=== PATIENT | male | born 1960 | race African-American/Black ===

== ENCOUNTER 2016-07-18 06:01 | Emergency (ER) | payer OTHER ==
[~2016-07-18] VITALS: Ht 172.7 cm; Wt 115.0 kg
[~2016-07-18 06:01] MED LIST: HYDR25TA5 PO; MOBI15TA PO; PRIN20TA2 PO
[2016-07-18 06:09] VITALS: BP 144/97; PULSE 74; RESP 16; TEMP 98.1; O2SAT 96
[2016-07-18] MEDS ORDERED: RESP: ALBUTEROL 2.5 MG/IPRATROPIUM 0.5 MG NEB (SCH) NEB ONE (06:30)
[2016-07-18] MEDS ORDERED: cefTRIAXone INJ 1,000 MG in SODIUM CHLORIDE 0.9% INJ 100 ML IV ONE (06:30)
[2016-07-18 07:04] LABS: BASOPHIL % 0.4 % (0.0-2.0); EOSINOPHIL # 0.2 TH/MM3 (0-0.4); EOSINOPHIL % 3.3 % (0.0-4.0); HEMATOCRIT 38.6 % (39.0-51.0); HEMO FLAGS DIFF FINAL; LYMPH % 42.6 % (9.0-44.0); LYMPHOCYTE # 2.4 TH/MM3 (1.0-4.8); MEAN CELL VOLUME 92.6 FL (80.0-100.0); MEAN CORPUSCULAR HEMOGLOBIN 31.3 PG (27.0-34.0); MEAN CORPUSCULAR HGB CONC 33.8 % (32.0-36.0); NEUT % 35.7 % (16.0-70.0); PLATELET COUNT 200 TH/MM3 (150-450); RED BLOOD COUNT 4.17 MIL/MM3 (4.50-5.90); RED CELL DISTRIBUTION WIDTH 13.6 % (11.6-17.2); WHITE BLOOD COUNT 5.6 TH/MM3 (4.0-11.0)
[2016-07-18 07:09] LABS: CHLORIDE 107 MEQ/L (98-107); POTASSIUM 3.5 MEQ/L (3.5-5.1); SODIUM (NA) 142 MEQ/L (136-145)
--- NOTE | 2016-07-18 07:12 | RADHPO ---
EXAM DATE/TIME: 07/18/2016 06:46 [place] COMPARISON: No previous studies available for comparison. INDICATIONS : Cough, congestion MEDICAL HISTORY : Hypertension. SURGICAL HISTORY : None. ENCOUNTER: Initial ACUITY: 1 day PAIN SCORE: Non-responsive. LOCATION: Bilateral chest FINDINGS: A single view of the chest demonstrates the lungs to be symmetrically aerated without evidence of mas s, infiltrate or effusion. The cardiomediastinal contours are unremarkable. Osseous structures are intact. CONCLUSION: No acute disease. Jose Angel Isbell Jr., MD on July 18, 2016 at 7:11 Board Certified Radiologist. This report was verified electronically.
[2016-07-18 07:13] LABS: ANION GAP 10 MEQ/L (5-15); BICARBONATE 25.3 MEQ/L (21.0-32.0); BLOOD UREA NITROGEN 19 MG/DL (7-18); MAGNESIUM 2.1 MG/DL (1.5-2.5)
[2016-07-18 07:16] LABS: GLOMERULAR FILTRATION RATE 76 ML/MIN (>89)
--- NOTE | 2016-07-18 07:17 | PD ---
HPI Chief Complaint: Cold / Flu Symptoms Time Seen by Provider: 06:22 Travel History International Travel<30 days: No Contact w/Intl Traveler<30days: No Traveled to known affect area: No History of Present Illness HPI 56-year-old male presents to the emergency department for complaint of 2 days of right sided mid back pain cough productive of green sputum and subjective fever and chills. Patient also reports myalgias and arthralgias. Patient did not receive the flu vaccine for this season due to his allergy to flu vaccine. Patient states symptoms remind him of prior walking pneumonia. Patient denies any chest pain. Patient has noted some intermittent wheezing. No history of asthma or bronchitis. Patient does have extensive past medical history that includes hypertension, bronchitis, pneumonia, CAD, remote MT, colitis, prior hemothorax, and no tobacco use. PFS Past Medical History Narrative Medical hypertension, bronchitis, pneumonia, CAD, remote MT, colitis, prior hemothorax, and no tobacco use; nursing notes reviewed Arthritis: No Asthma: No Autoimmune Disease: No Blood Disorders: No Heart Rhythm Problems: No Cancer: No Cardiovascular Problems: Yes (HTN) High Cholesterol: No Chemotherapy: No Chest Pain: Yes Congestive Heart Failure: No COPD: No Cerebrovascular Accident: Yes Diabetes: No Diminished Hearing: No Endocrine: No GERD: No Glaucoma: No Genitourinary: No Headaches: No Hepatitis: No Hiatal Hernia: No Hypertension: Yes Immune Disorder: No Kidney Stones: No Musculoskeletal: No Neurologic: Yes Psychiatric: No Reproductive: No Respiratory: No Myocardial Infarction: Yes (1995) Radiation Therapy: No Renal Failure: No Seizures: No Sickle Cell Disease: No Sleep Apnea: No Thyroid Disease: No Ulcer: No Influenza Vaccination: No Past Surgical History Surgical History: No Previous Surgery Abdominal Surgery: No AICD: No Cardiac Surgery: No Ear Surgery: No Endocrine Surgery: No Eye Surgery: No Genitourinary Surgery: No Gynecologic Surgery: No Oral Surgery: No Pacemaker: No Thoracic Surgery: No Social History Alcohol Use: Yes (EVERY OTEHR DAY ) Tobacco Use: No Substance Use: No Allergies-Medications (Allergen,Severity, Reaction): Coded Allergies: Pork (Verified Allergy, Severe, Swelling, 05/18/16) Flu Vaccine (Verified Allergy, Intermediate, SICK, 07/18/16) Banana (Verified Adverse Reaction, Intermediate, vomiting every time, with swelling. , 05/18/16) Reported Meds & Prescriptions Reported Meds & Active Scripts Active Mobic (Meloxicam) 15 Mg Tab 15 Mg PO DAILY Prinivil (Lisinopril) 20 Mg Tab 20 Mg PO DAILY Hydrochlorothiazide 25 Mg Tab 25 Mg PO DAILY Review of Systems Except as stated in HPI: all other systems reviewed are Neg General / Constitutional: Positive: Fever (subjective), Chills HENT: Positive: Congestion Cardiovascular: No: Chest Pain or Discomfort Respiratory: Positive: Cough, Shortness of Breath, Wheezing Gastrointestinal: No: Nausea, Vomiting, Diarrhea, Abdominal Pain Genitourinary: Positive: Flank Pain Musculoskeletal: Positive: Myalgias, Arthralgias Skin: No Rash Neurologic: No: Weakness Psychiatric: No: Anxiety Hematologic/Lymphatic: No: Lymph Node Enlargement Physical Exam Narrative GENERAL: Well developed well-nourished male in no acute distress no respiratory distress SKIN: Warm and dry. HEAD: Normocephalic. EYES: No scleral icterus. No injection or drainage. NECK: Supple, trachea midline. No JVD or lymphadenopathy. CARDIOVASCULAR: Regular rate and rhythm without murmurs, gallops, or rubs. RESPIRATORY: Breath sounds equal bilaterally except for a few crackles right base. No accessory muscle use. GASTROINTESTINAL: Abdomen soft, non-tender, nondistended. MUSCULOSKELETAL: No cyanosis, or edema. BACK: Nontender without obvious deformity. No CVA tenderness. Data Data Last Documented VS Vital Signs Date Time Temp Pulse Resp B/P Pulse Ox O2 Delivery O2 Flow Rate FiO2 07/18/16 06:26 20 96 Room Air 07/18/16 06:22 07/18/16 06:09 98.1 74 Orders Influenzae A/B Antigen (07/18/16 06:22) Chest, Single Ap (07/18/16 ) ^ Saline Lock (07/18/16 06:22) Ceftriaxone Inj (Rocephin Inj) (07/18/16 06:30) Albuterol-Ipratropium Neb (Duoneb Neb) (07/18/16 06:30) Complete Blood Count With Diff (07/18/16 06:22) Blood Culture (07/18/16 06:22) Basic Metabolic Panel (Bmp) (07/18/16 06:22) Magnesium (Mg) (07/18/16 06:22) Electrocardiogram (07/18/16 ) Troponin I (07/18/16 06:40) Labs Laboratory Tests Test 07/18/16 06:40 White Blood Count 5.6 TH/MM3 Red Blood Count 4.17 MIL/MM3 Hemoglobin 13.1 GM/DL Hematocrit 38.6 % Mean Corpuscular Volume 92.6 FL Mean Corpuscular Hemoglobin 31.3 PG Mean Corpuscular Hemoglobin 33.8 % Concent Red Cell Distribution Width 13.6 % Platelet Count 200 TH/MM3 Mean Platelet Volume 8.6 FL Neutrophils (%) (Auto) 35.7 % Lymphocytes (%) (Auto) 42.6 % Monocytes (%) (Auto) 18.0 % Eosinophils (%) (Auto) 3.3 % Basophils (%) (Auto) 0.4 % Neutrophils # (Auto) 2.0 TH/MM3 Lymphocytes # (Auto) 2.4 TH/MM3 Monocytes # (Auto) 1.0 TH/MM3 Eosinophils # (Auto) 0.2 TH/MM3 Basophils # (Auto) 0.0 TH/MM3 CBC Comment DIFF FINAL Differential Comment Sodium Level 142 MEQ/L Potassium Level 3.5 MEQ/L Chloride Level 107 MEQ/L Carbon Dioxide Level 25.3 MEQ/L Anion Gap 10 MEQ/L Blood Urea Nitrogen 19 MG/DL Creatinine 1.20 MG/DL Estimat Glomerular Filtration 76 ML/MIN Rate Random Glucose 129 MG/DL Calcium Level 8.2 MG/DL Magnesium Level 2.1 MG/DL [facility] Medical Decision Making Medical Screen Exam Complete: Yes Emergency Medical Condition: Yes Medical Record Reviewed: Yes Interpretation(s) cxr: possible small left lower lobe infiltrate cbc: grossly wnl x 18% monocytosis bmp: remarkable for elevated BUN;and random glucose of 129 influenza a/b ag: negative ekg: Sinus rhythm rate [address] elevation however noted possible repolarization changes V3 through V5 however this EKG is unchanged from prior study 09/18/13 Differential Diagnosis Bronchitis, pneumonia, influenza, viral syndrome, ACS, CHF Narrative Course IV access obtained specimens collected and sent for resulting Patient administered Rocephin 1 g IV piggyback and albuterol treatment times one Lab values identify normal white cell count however does have monocytosis of 18 % chemistries are otherwise within normal limits except for mild elevation of BUN and random glucose Influenza A/B antigen negative Chest x-ray has been read as no acute process by reading radiologist Diagnosis Primary Impression: Bronchitis Med/Other Pt SpecificInfo: Prescription(s) given Scripts Albuterol 6.7 GM Inh (Proventil Hfa 6.7 GM Inh)90 Mcg/Act Aer2 Puff INH Q4-6H PRN (SHORTNESS OF BREATH) #1 INHALER Ref 0 Prov:Tatum Lee MD 07/18/16 Azithromycin (Zithromax Z-Faheem)250 Mg [id number] Mg PO DIRECTED #1 DSPK Ref 0 500 MG (2 tabs) day 1, then 1 tab days 2-5. Prov:Tatum Lee MD 07/18/16 Tatum Lee MD Jul 18, 2016 07:17
[2016-07-18] MEDS ORDERED: ALBU6.7H INH (07:42)
[2016-07-18] MEDS ORDERED: ZITHTAB PO (07:42)
[2016-07-18 08:11] VITALS: BP 142/78; PULSE 86; RESP 17; O2SAT 100
--- NOTE | 2016-07-20 00:03 | EKG ---
Date Performed: 07/18/2016 Time Performed: 07:31:30 PTAGE: 56 years EKG: Sinus rhythm Right bundle branch block Lateral ST elevation - possible early repolarization Abnormal ECG PREVIOUS TRACING : 09/18/2013 09.18 DOCTOR: Tra Gonzalez Interpretating Date/Time 07/19/2016 23:52:40
[2016-09-05] MEDS ORDERED: PRIN20TA2 PO (09:55)
[2016-09-05] MEDS ORDERED: MOBI15TA PO (09:55)
[2016-09-05] MEDS ORDERED: HYDR25TA5 PO (09:55)
[2016-11-14] MEDS ORDERED: AMLO5TAB2 PO (09:39)
== END 2016-07-18 08:15 | disposition home or self-care (01) ==
LOC: PHED 06:01
DX: J40 Bronchitis, not specified as acute or chronic (principal); I25.2 Old myocardial infarction; I25.10 Atherosclerotic heart disease of native coronary artery without angina pectoris; I10 Essential (primary) hypertension; I45.10 Unspecified right bundle-branch block; Z79.899 Other long term (current) drug therapy
CPT/HCPCS: 71010; 80048; 83735; 84484; 85025; 87040; 87804; 93005; 94664; 96365; 99284; J0696

== ENCOUNTER 2016-11-10 07:04 | Emergency (ER) | payer SELFPAY ==
[~2016-11-10] VITALS: Ht 171.4 cm; Wt 113.5 kg
[2016-11-10 07:10] VITALS: BP 142/95; PULSE 67; RESP 16; TEMP 98.3; O2SAT 97
--- NOTE | 2016-11-10 07:43 | PD ---
HPI Chief Complaint: Hypertension Time Seen by Provider: 07:24 Travel History International Travel<30 days: No Contact w/Intl Traveler<30days: No Traveled to known affect area: No History of Present Illness HPI This is a 56-year-old male who has a history of high blood pressure who presents to the emergency department not feeling well over the past 2 days, constant, moderate severity, associated with swelling in his face, arms and hands, some headaches, and having checked his blood pressure yesterday and finding it to be in the 170s. He takes lisinopril and hydrochlorothiazide at home. Yesterday he took a Lasix which he says he has as needed for swelling. He had to leave work yesterday. He didn't take his blood pressure medications this morning and came to the emergency department to get evaluated. PFSH Past Medical History Arthritis: Yes Asthma: No Autoimmune Disease: No Blood Disorders: No Heart Rhythm Problems: No Cancer: No Cardiovascular Problems: Yes (htn on meds, ) High Cholesterol: No Chemotherapy: No Chest Pain: Yes Congestive Heart Failure: No COPD: No Cerebrovascular Accident: Yes (tia) Diabetes: No Diminished Hearing: No Endocrine: No GERD: No Glaucoma: No Genitourinary: No Headaches: No Hepatitis: No Hiatal Hernia: No Hypertension: Yes Immune Disorder: No Kidney Stones: No Musculoskeletal: No Neurologic: Yes Psychiatric: No Reproductive: No Respiratory: No Myocardial Infarction: Yes Radiation Therapy: No Renal Failure: No Seizures: No Sickle Cell Disease: No Sleep Apnea: No Thyroid Disease: No Ulcer: No Influenza Vaccination: No Past Surgical History Surgical History: No Previous Surgery Abdominal Surgery: No AICD: No Cardiac Surgery: No Ear Surgery: No Endocrine Surgery: No Eye Surgery: No Genitourinary Surgery: No Gynecologic Surgery: No Oral Surgery: No Pacemaker: No Thoracic Surgery: No Social History Alcohol Use: Yes (DAILY) Tobacco Use: No Substance Use: No Allergies-Medications (Allergen,Severity, Reaction): Coded Allergies: Pork (Verified Allergy, Severe, Swelling, 11/10/16) Flu Vaccine (Verified Allergy, Intermediate, SICK, 11/10/16) Banana (Verified Adverse Reaction, Intermediate, vomiting every time, with swelling. , 11/10/16) Reported Meds & Prescriptions Reported Meds & Active Scripts Active Mobic (Meloxicam) 15 Mg Tab 15 Mg PO DAILY Prinivil (Lisinopril) 20 Mg Tab 20 Mg PO DAILY Hydrochlorothiazide 25 Mg Tab 25 Mg PO DAILY Review of Systems Except as stated in HPI: all other systems reviewed are Neg Physical Exam Narrative GENERAL:Well appearing, no acute distress SKIN: Focused skin assessment warm and dry. HEAD: Atraumatic. Normocephalic. EYES: Pupils equal and round. No injection or drainage. ENT: Moist mucous membranes NECK: Trachea midline. CARDIOVASCULAR: Regular rate and rhythm. No murmur appreciated. Trace edema in the bilateral lower extremities. RESPIRATORY: Clear to auscultation. Breath sounds equal bilaterally. GASTROINTESTINAL: Abdomen soft, non-tender, nondistended. MUSCULOSKELETAL: No obvious deformities. NEUROLOGICAL: Awake and alert. No obvious cranial nerve deficits. Moving all extremities. PSYCHIATRIC: Appropriate mood and affect; insight and judgment normal. Data Data Last Documented VS Vital Signs Date Time Temp Pulse Resp B/P Pulse Ox O2 Delivery O2 Flow Rate FiO2 11/10/16 07:10 98.3 67 16 142/95 97 Orders Basic Metabolic Panel (Bmp) (11/10/16 07:31) Labs Laboratory Tests Test 11/10/16 07:38 Sodium Level 142 MEQ/L Potassium Level 3.6 MEQ/L Chloride Level 104 MEQ/L Carbon Dioxide Level 29.8 MEQ/L Anion Gap 8 MEQ/L Blood Urea Nitrogen 15 MG/DL Creatinine 1.40 MG/DL Estimat Glomerular Filtration 64 ML/MIN Rate Random Glucose 112 MG/DL Calcium Level 9.1 MG/DL MDM Medical Decision Making Medical Screen Exam Complete: Yes Emergency Medical Condition: Yes Interpretation(s) Afebrile, no tachycardia, hypertensive Creatinine is 1.4, increased from July and it was 1.2 Differential Diagnosis Hypertension, hypertensive urgency, hypertensive emergency, renal insufficiency Narrative Course This is a 56-year-old male who presents to the emergency Department concerned because his blood pressure is out of control and he is having increasing lower extremity and facial swelling. Here his blood pressure is moderately high but not in a critical range. His creatinine is 1.4 compared to 1.2 in July. I think it's reasonable given his concerns and is upward trending creatinine to change his lisinopril to amlodipine. He will follow-up with his primary care physician regarding these changes. Diagnosis Primary Impression: Essential hypertension Patient Instructions: General Instructions Additional Instructions: If you develop severe chest pain, shortness of breath, sweating, lightheadedness , dizziness or difficulty breathing return to the emergency department immediately. Followup with your primary care physician in 2-3 days if your symptoms are not resolved. Med/Other Pt SpecificInfo: Prescription(s) given, Med Stopped (stop lisinopril) Scripts Amlodipine 5 Mg Tab5 Mg PO DAILY #30 TAB Ref 0 Prov:Ofe Aly MD 11/10/16 Disposition: 01 DISCHARGE HOME Condition: Stable Ofe Aly MD Nov 10, 2016 07:43
[2016-11-10 07:51] LABS: POTASSIUM 3.6 MEQ/L (3.5-5.1)
[2016-11-10 07:55] LABS: BICARBONATE 29.8 MEQ/L (21.0-32.0)
[2016-11-10] MEDS ORDERED: AMLO5TAB2 PO (08:05)
[2016-11-10] MEDS ORDERED: amLODIPine BESYLATE 5 MG TAB PO ONE (08:15)
[2016-11-14] MEDS ORDERED: AMLO5TAB2 PO (09:39)
== END 2016-11-10 08:24 | disposition home or self-care (01) ==
LOC: PHED 07:04
DX: I10 Essential (primary) hypertension (principal); R51 Headache
CPT/HCPCS: 80048; 99283

== ENCOUNTER 2018-06-11 09:45 | Inpatient (IN) ==
[2018-06-11] MEDS ORDERED: Sodium Chlor 0.9% Inj 500 ML IV.CONT ONE (10:15)
[2018-06-11] MEDS ORDERED: Chlorhexidine Gluconate 2% 1 Pack (2 Cloths) TOPICAL ONE (10:15)
[2018-06-11] MEDS ORDERED: Chlorhexidine 4% Topical 120 APPLIC/120 ML Bottle TOPICAL SCH (10:15)
[2018-06-11] MEDS ORDERED: Metoprolol Tartrate 25 MG Tablet PO ONE (10:15)
[2018-06-11] MEDS ORDERED: Sodium Chlor 0.9% Inj 73.07 ML, Ropivacaine 0.5% PF Inj 24.63 ML, Ketorolac Inj 30 MG, ... P-ARTICULR ONE ×5 (10:15)
[2018-06-11] MEDS ORDERED: ceFAZolin 2 GM Premix Inj 2 GM/50 ML PIGGYBACK IV.SIG SCH (11:00)
[2018-06-11] MEDS ORDERED: Vancomycin Inj 1,000 MG in Sodium Chlor 0.9% Inj 250 ML IV.SIG SCH (11:00)
[2018-06-11] MEDS ORDERED: fentaNYL Citrate Inj 250 MCG/5 ML Ampul ONE (11:42)
[2018-06-11] MEDS ORDERED: ceFAZolin 1 GM Premix Inj 1 GM/50 ML FROZ.PIGGY IV.SIG ONE (13:15)
[2018-06-11] MEDS ORDERED: Bisacodyl 10 MG Supp RECTAL PRN (15:32)
[2018-06-11] MEDS ORDERED: Post-op Orders (for Pharmacy) OTHER STA (15:32)
--- NOTE | 2018-06-11 15:36 | P.DCO ---
- Physical Therapy Physical Therapy: Gait training, Transfer training, bed to chair Knee: Total knee, Protocol: Left, Full weight bearing - Nursing RN: 3 days/week x 2 weeks Nursing: Dressing changes (clean incision with alcohol and apply dry, sterile dressing daily ) Additional instructions: aspirin 81 mg bid x 4 weeks dvt prop - Certification Need for Home Health services: I have seen patient Merritt Vasquez on 06/11/18. My clinical findings support the need for the requested home health care services because: Need for Home Health Services: Deconditioned with increased weakness, High risk of falls Homebound Certification: I certify that my clinical findings support that this patient is homebound because: Homebound Certification: Post-op weakness
[2018-06-11] MEDS ORDERED: *morphine SULFATE 4 MG/ML PERIprocedure ONLY ONE ×2 (15:47→16:44)
--- NOTE | 2018-06-11 15:47 | MP ---
cc: Pepe Mcmanus MD, Roy MD DATE OF OPERATION: 06/04/2018 PREOPERATIVE DIAGNOSES: 1. Right knee severe tricompartment osteoarthritis, severe genu varus deformity. 2. Morbid obesity. 3. Status post right total knee arthroplasty, 04/09/2018. POSTOPERATIVE DIAGNOSES: 1. Right knee severe tricompartment osteoarthritis, severe genu varus deformity. 2. Morbid obesity. 3. Status post right total knee arthroplasty, 04/09/2018. PROCEDURE PERFORMED: Left total knee arthroplasty - cemented Biomet Maxim. SURGEON: Pepe Mcmanus MD PRINT LINE TAILER: VU Silva ANESTHESIA: General, adductor canal block, intraarticular block. TOURNIQUET TIME: 89 minutes at 275 mmHg. COMPLICATIONS: None. SPECIMENS: None. DRAINS: Two. DESCRIPTION OF PROCEDURE: My assistant producer Delores Zavala PA-C, was present for the entire surgical case. She was medically necessary for the entire case due to the complexity of the case and to facilitate the performance of the procedure. The PACKING SHED SUPERVISOR at the back table was not of the skill set for this case to manipulate the instruments, which included the trial implants, permanent implants and including bone cement. The patient was brought to the operating room and had satisfactory general anesthesia by the Department of Anesthesia. Left lower extremity was prepped and draped in the usual sterile manner. Because the patient has morbidly obesity, great care was made to protect all pressure points. The left knee and lower extremity were prepped and draped in the usual sterile manner. The extremity was exsanguinated by elevation and tourniquet inflated to 275 mmHg. Anterior surgical exposure to the knee was made. Paramedian capsulotomy was performed. Patella dislocated laterally. The patient was found to have severe osteoarthritis of all 3 compartments with severe genu varus deformity. The remaining portion of medial and lateral meniscus were removed. Prepatellar fat pad was surgically excised. The anterior cruciate ligament was already gone. Posterior cruciate ligament was preserved. Using the [employer] Feedguard total knee arthroplasty system, IM guide was used for the distal femur. A 75-degree valgus cut to accept a 70 mm femoral component. The extramedullary guide was used for the tibia. This was to accept a 75 mm tibial component. Considerable soft tissue releases were performed medially and posteromedially. Also, posterior medial osteophytes were removed off the distal femur. After satisfactory balancing, a 12 x 75 mm polyethylene plastic was found to have excellent balance in both flexion and extension. Undersurface of the patella was removed to accept a 34 mm 3-pronged patellar prosthesis. A lateral retinacular release was performed. The patella was found to groove well within the patellofemoral compartment with a "no thumbs technique." All trial components were removed and preparation for cementing was made. Initially, the knee was injected with 100 mL of local anesthesia provided by Department of Pharmacy. First, 2 packages of methyl methacrylate high viscosity cement by [employer] was used. First, the tibial component was cemented followed by the femoral component. The tibial component was a 75. The femoral component was a 70. The undersurface of the patella was a 34 mm 3-pronged patellar prosthesis. These all were cemented at once. All excess bone cement was removed and the bone cement allowed to harden for 13 minutes. Trial polyethylene plastic was removed and a 12 x 75 "lipped" polyethylene plastic was used on the tibial tray and appropriate clipping mechanisms were used to secure the polyethylene plastic to the tibia. Tourniquet was deflated. Again, the patient was found to have good stability of the knee and satisfactory balancing of the knee in flexion and extension. The knee was irrigated with 4000 mL of sterile saline antibiotic solution. Them wounds themselves were dry. Wound was closed in a routine manner over two 1/8 inch Hemovac drains. The capsule and extensor mechanism were closed with interrupted #2 Ti-Cron suture, subcuticular layers with 0 Vicryl and 2-0 Vicryl, skin approximated with skin gonsalo. Sterile dressings were applied. The patient tolerated the procedure well and arrived in the recovery room in stable and satisfactory condition. MD ARON Null/candida , 03:21 PM , 03:34 PM
--- NOTE | 2018-06-11 16:15 | XR ---
EXAM DATE: 06/11/2018 4:12 PM EST AGE/SEX: 58 years / Male INDICATIONS: Post Op left knee. CLINICAL DATA: This is the patient's initial encounter. Patient reports that signs and symptoms have been present for 1 day and indicates a pain score of Nonresponsive. MEDICAL/SURGICAL HISTORY: None. Total knee replacement, left. COMPARISON: No prior exams available for comparison. FINDINGS: Total knee arthroplasty is present. Hardware is intact. Alignment is anatomic. Surgical drains are pr esent. Skin gonsalo present ventrally. CONCLUSION: Satisfactory appearance post left TKA Electronically signed by: Shilo Wynne MD 06/11/2018 4:13 PM EST
[2018-06-11] MEDS: ceFAZolin 1 GM Premix Inj 1 GM/50 ML IV.SIG SCH (18:09)
[2018-06-11] MEDS: Senna/Docusate Sodium 8.6/50 MG Tablet PO SCH (20:50)
[2018-06-11] MEDS: Morphine Inj 4 MG/ML Vial IV.PUSH PRN (20:53)
[2018-06-11] MEDS ORDERED: Zolpidem Tartrate 5 MG Tablet PO PRN (21:00)
[2018-06-12] MEDS: ceFAZolin 1 GM Premix Inj 1 GM/50 ML IV.SIG SCH ×2 (00:04→05:29)
[2018-06-12] MEDS: Morphine Inj 4 MG/ML Vial IV.PUSH PRN (01:45)
[2018-06-12 05:44] LABS: Hematocrit 28.2 % (39.0-51.0); Hemoglobin 9.8 gm/dL (13.0-17.0)
--- NOTE | 2018-06-12 06:58 | P.PNOP ---
Subjective Interval history: POD#1 L TKR No SOB;no chest pain Explained to patient operative findings;answered multiple questions Patient wishes to go home today Physical Exam Vital signs: Vital Signs 06/11/18 10:15 06/11/18 10:55 06/11/18 15:33 Temperature 98.8 F 98.8 F Pulse Rate 78 68 86 Respiratory Rate 20 18 Blood Pressure 135/84 135/71 Pulse Oximetry 95 99 94 L 06/11/18 15:45 06/11/18 16:00 06/11/18 16:15 Temperature Pulse Rate 80 75 75 Respiratory Rate 18 18 18 Blood Pressure 135/71 130/69 142/75 H Pulse Oximetry 99 98 98 06/11/18 16:30 06/11/18 16:35 06/11/18 16:45 Temperature Pulse Rate 73 76 Respiratory Rate 18 18 Blood Pressure 142/74 H 133/70 Pulse Oximetry 100 100 100 06/11/18 17:00 06/11/18 17:30 06/11/18 17:35 Temperature Pulse Rate 78 78 Respiratory Rate 18 18 Blood Pressure 157/79 H 144/83 H Pulse Oximetry 99 97 94 L 06/11/18 18:30 06/11/18 19:05 06/11/18 19:15 Temperature 98.4 F Pulse Rate 85 82 Respiratory Rate 18 18 Blood Pressure 144/83 H 130/66 Pulse Oximetry 95 94 L 95 06/11/18 19:46 06/11/18 20:22 06/11/18 20:55 Temperature 98.1 F Pulse Rate 92 H Respiratory Rate 18 18 18 Blood Pressure 168/74 H Pulse Oximetry 95 06/12/18 00:44 06/12/18 00:49 06/12/18 01:47 Temperature 98.0 F Pulse Rate 95 H Respiratory Rate 18 18 18 Blood Pressure 160/71 H Pulse Oximetry 96 06/12/18 04:35 06/12/18 06:21 Temperature 98.2 F Pulse Rate 94 H Respiratory Rate 18 20 Blood Pressure 142/58 H Pulse Oximetry 94 L Intake & Output 06/11/18 06/11/18 06/12/18 06:59 18:59 06:59 Intake Total 1300 / 1300 2590 / 2590 Output Total 430 / 430 900 / 900 Balance 870 / 870 1690 / 1690 Weight 128.3 kg 134.7 kg Intake: IV 400 / 400 2100 / 2100 LR 1000 mL Inj 1,000 ML @ 80 2000 / 2000 mls/hr IV.CONT .[id number] [facility] Rx# :[id number] Vancomycin Inj 1,000 MG In NS 250 / 250 Inj 250 ML @ 250 mls/hr IV.SIG COMPOUNDING ASSISTANT [facility] Rx#:[id number] Ancef 1 GM Premix Inj 1 gm In 100 / 100 100 / 100 50 ml @ 100 mls/hr IV.SIG Q6H [facility] Rx#:[id number] Ancef 2 GM Premix Inj 2 gm In 50 / 50 50 ml @ 100 mls/hr IV.SIG COMPOUNDING ASSISTANT [facility] Rx#:[id number] Oral 490 / 490 Anesthesia Amount 900 / 900 Output: Urine 650 / 650 Estimated Blood Loss 50 / 50 Wound Drainage 380 / 380 250 / 250 # 1 Left Knee Hemovac 380 / 380 250 / 250 Other: Date of Last Bowel Movement 06/10/18 # Bowel Movements 0 Weight On Admission 128.3 kg Narrative: N/V intact Dressings changed,drains removed Negative patricia's;no calf tenderness Results - Labs CBC & Chem 7: 06/12/18 05:24 Laboratory Results - last 24 hr 06/11/18 06/12/18 10:29 05:24 Hgb 9.8 L Hct 28.2 L Blood Type B Positive Antibody Screen Negative MTS Gel Crossmatch See Detail Bld Prod Order Comment - Imaging Impressions Knee X-Ray 06/11/18 15:31 CONCLUSION: Satisfactory appearance post left TKA Assessment and Plan - Problem List (1) Osteoarthritis of left knee Code(s): M17.12 - Unilateral primary osteoarthritis, left knee Status: Acute - Assessment and Plan Ortho stable C RN/PT Aspirin 81mg BID,TEDS x 4 weeks for DVT/PE prophylaxsis Discharge home today
[2018-06-12] MEDS: Senna/Docusate Sodium 8.6/50 MG Tablet PO SCH (08:16)
[2018-06-12] MEDS ORDERED: amLODIPine 5 MG Tablet PO SCH (09:00)
[2018-06-12] MEDS ORDERED: hydroCHLOROthiazide 25 MG Tablet PO SCH (09:00)
== END 2018-06-12 10:13 | disposition home health service (06) ==
LOC: HSDI 09:45 → N06 19:34
PROVIDERS: ADMIT Orthopaedic Surgery Orthopaedic Surgery of the Spine; ATTEND Orthopaedic Surgery Orthopaedic Surgery of the Spine